=== PATIENT | female | born 1995 | race Caucasian/White ===

== ENCOUNTER 2017-02-15 23:25 | Emergency (ER) | payer MEDICAID ==
[~2017-02-15] VITALS: Ht 185.4 cm; Wt 104.9 kg
[~2017-02-15 23:25] MED LIST: CALC200T3 PO; IBUP-1222 PO; NIFE30TA2 PO; OXYC-302 PO; PREN1TAB60 PO
[2017-02-16] MEDS ORDERED: DIPHENHYDRAMINE 25 MG CAPSULE PO ONE (01:00)
[2017-02-16] MEDS ORDERED: DIPHENHYDRAMINE 25 MG CAPSULE ONE (01:10)
[2017-02-16 01:14] VITALS: BP 130/75
== END 2017-02-16 01:23 | disposition home or self-care (01) ==
LOC: ED 23:59
DX: S80.262A Insect bite (nonvenomous), left knee, initial encounter (principal); W57.XXXA Bitten or stung by nonvenomous insect and other nonvenomous arthropods, initial encounter; Y93.89 Activity, other specified; Y92.89 Other specified places as the place of occurrence of the external cause; Y99.8 Other external cause status
CPT/HCPCS: 99283; Q0163